=== PATIENT | female | born 1940 | race Caucasian/White ===

== ENCOUNTER 2017-03-03 10:02 | Emergency (ER) | payer MEDICAID ==
[2017-03-03 10:53] VITALS: BP 146/88
--- NOTE | 2017-03-03 18:24 | ED ---
Skin Complaint - HPI Summary HPI Summary: Patient presents with a severe sunburn over the chest x 3 weeks. She has been taking aloe vera lotion, mupirocin ointment and cetaphil without relief. Rx for hydroxyzine with minimal relief. She endorses 5/10 pain, itching. Denies chest pain or SOB. Denies current blistering, but states after 1 week s/p injury, experienced blistering which dissipated with mupirocin ointment. Now she states only itching remains. Denies other symptoms. - History of Current Complaint Chief Complaint: EDRashSkinAbscess Time Seen by Provider: 03/03/17 10:15 Stated Complaint: SUNBURN ON CHEST Hx Obtained From: Patient Onset/Duration: Started Weeks Ago Skin Exposure Onset/Duration: Weeks Ago Timing: Constant Onset Severity: Moderate Pain Intensity: 5 Pain Scale Used: 0-10 Numeric Skin Location: Chest Character: Redness, Painful Aggravating Symptom(s): Touch Alleviating Symptom(s): Nothing - Allergy/Home Medications Allergies/Adverse Reactions: Allergies Allergy/AdvReac Type Severity Reaction Status Date / Time Penicillinase Allergy Mild Rash Verified 04/25/16 16:56 PMH/Surg Hx/FS Hx/Imm Hx Previously Healthy: Yes Endocrine/Hematology History: Reports: Hx Thyroid Disease Cardiovascular History: Reports: Hx Hypertension - Immunization History Hx Pertussis Vaccination: No Immunizations Up to Date: Unable to Obtain/Confirm Infectious Disease History: No Infectious Disease History: Denies: History Other Infectious Disease, Traveled Outside the [place] in Last 30 Days - Family History Known Family History: Positive: Unknown - pt is not a good historian - Social History Occupation: Unemployed Lives: With Family Alcohol Use: None Hx Substance Use: No Substance Use Type: Reports: None Hx Tobacco Use: No Smoking Status (MU): Never Smoked Tobacco Do You Chew or Dip Tobacco: No Review of Systems Constitutional: Negative Eyes: Negative Respiratory: Negative Gastrointestinal: Negative Genitourinary: Negative Positive: no symptoms reported, see HPI Positive: Rash Neurological: Negative Psychological: Normal All Other Systems Reviewed And Are Negative: Yes Physical Exam Triage Information Reviewed: Yes Vital Signs On Initial Exam: Initial Vitals Temp Pulse Resp BP Pulse Ox 98.8 F 84 16 137/90 95 03/03/17 10:08 03/03/17 10:08 03/03/17 10:08 03/03/17 10:08 03/03/17 10:08 Vital Signs Reviewed: Yes Appearance: Positive: Well-Appearing, Well-Nourished Skin: Positive: Warm, Skin Color Reflects Adequate Perfusion, Other - dark erythematous warm area to the chest resembling s/p sunburn Neck: Positive: Supple, No Lymphadenopathy Respiratory/Lung Sounds: Positive: Clear to Auscultation, Breath Sounds Present Cardiovascular: Positive: Normal, RRR, Pulses are Symmetrical in both Upper and Lower Extremities Neurological: Positive: Sensory/Motor Intact, Alert, Oriented to Person Place, Time Psychiatric: Positive: Normal AVPU Assessment: Alert Diagnostics - Vital Signs Vital Signs Temp Pulse Resp BP Pulse Ox 03/03/17 10:51 99.3 F 79 18 146/88 99 03/03/17 10:08 98.8 F 84 16 137/90 95 - Laboratory Lab Statement: Any lab studies that have been ordered have been reviewed, and results considered in the medical decision making process. Course/Dx - Course Course Of Treatment: dark erythematous warm area to the chest resembling s/p sunburn without improvement with aloe vera. Rx for hydroxyzine and prednisone sent. Encouraged to continue aloe vera several times per day. Medications were reveiwed with patient. Encouarged to follow up with PCP or return to ED for worsening symptoms. Return precautions given. Patient understands and agrees with plan. Ok for discharge. - Differential Diagnoses - Skin Complaint Differential Diagnoses: Other - drug rash, sun burn, reaction, contact dermatitis - Diagnoses Provider Diagnoses: Sunburn Discharge - Discharge Plan Condition: Stable Disposition: HOME Prescriptions: diPHENhydraMINE PO* [Benadryl PO 25 MG TAB*] 25 mg PO BEDTIME PRN #10 tab PRN Reason: Pain hydrOXYzine HCL TAB* [Atarax 25 MG TAB*] 25 mg PO TID PRN #15 tab PRN Reason: Itching predniSONE TAB* [Deltasone TAB*] 50 mg PO DAILY #5 tab MDD 1 Patient Education Materials: Sunburn (ED), Cold Compress or Soak (ED) Referrals: Jessica Olson MD [Primary Care Provider] - Additional Instructions: Prednisone once daily for 5 days (in the morning) Hydroxyzine three times daily during the day Benadryl 25mg at bedtime Continue with aloe vera gel 5x per day Cold compresses may help the discomfort
== END 2017-03-03 11:02 | disposition home or self-care (01) ==
LOC: ED 10:02
DX: L55.9 Sunburn, unspecified (principal); R21 Rash and other nonspecific skin eruption
CPT/HCPCS: 99281

== ENCOUNTER → 2018-11-29 15:54 | Emergency (ER) | payer MEDICARE, MEDICAID ==
[~2018-11-29 15:54] MED LIST: Ondansetron ODT TAB* 4 MG SL ONE; oxyCODONE/Acetamin 5/325 MG* TAB PO ONE
[2018-11-29 16:55] LABS: Urine Appearance Clear; Urine Bacteria Absent (Absent); Urine Bilirubin Negative (Negative); Urine Blood 2+ (Negative); Urine Color Yellow; Urine Glucose 1+(50 mg/dL) (Negative); Urine Ketones Negative (Negative); Urine Nitrite Negative (Negative); Urine Protein Negative (Negative); Urine Red Blood Cell 1+(3-5/hpf) (Absent); Urine Specific Gravity 1.014 (1.010-1.030); Urine Urobilinogen Negative (Negative); Urine White Blood Cell Trace(0-5/hpf) (Absent)
--- NOTE | 2018-11-29 17:05 | ED ---
Back Pain - HPI Summary HPI Summary: This patient is a 77 year old F presenting to [facility] accompanied by her daughter with a chief complaint of worsening lower back pain radiating downwards since 2 days ago. At 05:00 this morning, she went to bend over and felt 10/10 pain in her back. The patient rates the pain 7/10 in severity. Patient reports pain with ambulation and decreased ROM due to pain. Patient denies incontinence, GI problems, weight loss, or urinary symptoms. The patient was gardening when the initial pain started. She was sitting and lifting something heavy when she felt a crack in her back. She tried to treat the pain with wet towels and Tylenol and she felt a little better after resting. The next day she had pain but could walk. Today, she could not walk or bend over much at all. Allergy to Penicillin , Valium, and Hydrochlorothiazide. She has not taken Tylenol today. No PMHx kidney stones, diabetes. - History of Current Complaint Chief Complaint: EDBackInjuryPain Stated Complaint: BACK PAIN PER PT DAUGHTER Time Seen by Provider: 11/29/18 16:37 Hx Obtained From: Patient Onset/Duration: Sudden Onset, Lasting Days Onset/Duration: Started Days Ago Timing: Constant Back Pain Location: Is Discrete @ - lower back, Radiates To - downwards Severity Initially: Severe - 10/10 Severity Currently: Moderate Pain Intensity: 7 Pain Scale Used: 0-10 Numeric Aggravating Symptom(s): Lifting, Bending, Walking Alleviating Symptom(s): Rest - Allergies/Home Medications Allergies/Adverse Reactions: Allergies Allergy/AdvReac Type Severity Reaction Status Date / Time hydrochlorothiazide Allergy Severe Blisters Verified 11/29/18 17:07 chlorthalidone Allergy Intermediate Rash Verified 11/29/18 17:07 diazepam [From Valium] Allergy Intermediate Dizziness Verified 11/29/18 17:07 nifedipine [From Adalat] Allergy Intermediate Rash Verified 11/29/18 17:07 Penicillins Allergy Intermediate Rash Verified 11/29/18 17:07 Home Medications: Home Medications Calcium Citrate/Vitamin D3 [Calcium Citrate-Vit D Caplet] 1 each PO DAILY [History Confirmed 11/29/18] Clobetasol Propionate/Emoll [Clobetasol Propionate Emo] 1 % TOPICAL DAILY [History Confirmed 11/29/18] Desonide 0.005% OINT(NF) 1 applic TOPICAL DAILY PRN 11/29/18 [History Confirmed 11/29/18] Losartan TAB* [Cozaar TAB*] 50 mg PO DAILY 11/29/18 [History Confirmed 11/29/18] Mometasone Furoate [Elocon] 0.1 % TOPICAL DAILY PRN 11/29/18 [History Confirmed 11/29/18] Freedom-3 Acid Ethyl Esters [Lovaza 1 gm] 1 cap PO DAILY 11/29/18 [History Confirmed 11/29/18] PMH/Surg Hx/FS Hx/Imm Hx Endocrine/Hematology History: Reports: Hx Thyroid Disease Denies: Hx Diabetes Cardiovascular History: Reports: Hx Hypertension History: Denies: Hx Kidney Stones Sensory History: Denies: Hx Deafness Infectious Disease History: No Infectious Disease History: Denies: History Other Infectious Disease, Traveled Outside the [place] in Last 30 Days - Family History Known Family History: Positive: Unknown - pt is not a good historian - Social History Lives: With Family Alcohol Use: None Hx Substance Use: No Substance Use Type: Reports: None Hx Tobacco Use: No Smoking Status (MU): Never Smoked Tobacco Review of Systems Negative: Other - weight loss Negative: Other - GI problems Genitourinary: Negative Positive: Myalgia - lower back pain, Decreased ROM - walking All Other Systems Reviewed And Are Negative: Yes Physical Exam - Summary Physical Exam Summary: GENERAL: Patient is a well-developed and nourished female who is lying comfortable in the stretcher. Patient is not in any acute respiratory distress. HEAD AND FACE: Normocephalic EYES: PERRLA, EOMI x 2. EARS: Hearing grossly intact. MOUTH: Oropharynx within normal limits. NECK: Supple, trachea is midline, no adenopathy, no JVD, no carotid bruit. CHEST: Symmetric, no tenderness at palpation LUNGS: Clear to auscultation bilaterally. No wheezing or crackles. CVS: Regular rate and rhythm, S1 and S2 present, no murmurs or gallops appreciated. ABDOMEN: Soft, non-tender. Bowel sounds are normal. No abdominal abnormal pulsations. EXTREMITIES: Full ROM in all major joints, no edema, no cyanosis or clubbing. 5/ 5 motor in the bilateral lower extremities. Sensation is intact. NEURO: Alert and oriented x 3. No acute neurological deficits. Speech is normal and follows commands. TTP Lumbar spine. SKIN: Dry and warm Triage Information Reviewed: Yes Vital Signs On Initial Exam: Initial Vitals Temp Pulse Resp BP Pulse Ox 98.9 F 70 16 169/93 97 11/29/18 15:57 11/29/18 15:57 11/29/18 15:57 11/29/18 15:57 11/29/18 15:57 Vital Signs Reviewed: Yes Diagnostics - Vital Signs Vital Signs Temp Pulse Resp BP Pulse Ox 11/29/18 15:57 98.9 F 70 16 169/93 97 - Laboratory Lab Results: Lab Results 11/29/18 Range/Units 16:41 Urine Color Yellow Urine Appearance Clear Urine pH 6.0 (5-9) Ur Specific [place] 1.014 (1.010-1.030) Urine Protein Negative (Negative) Urine Ketones Negative (Negative) Urine Blood 2+ A (Negative) Urine Nitrate Negative (Negative) Urine Bilirubin Negative (Negative) Urine Urobilinogen Negative (Negative) Ur Leukocyte Esterase Negative (Negative) Urine WBC (Auto) Trace(0-5/hpf) (Absent) Urine RBC (Auto) 1+(3-5/hpf) A (Absent) Urine Bacteria Absent (Absent) Urine Glucose 1+(50 mg/dl) A (Negative) Result Diagrams: 11/29/18 17:24 11/29/18 17:25 Lab Statement: Any lab studies that have been ordered have been reviewed, and results considered in the medical decision making process. - Radiology L-spine Radiology Interpretation Completed By: Radiologist Summary of Radiographic Findings: MILD DEGENERATIVE DISC DISEASE. ED physician has reviewed this report. T-spine Radiology Interpretation Completed By: Radiologist Summary of Radiographic Findings: MILD TO MODERATE DIFFUSE DEGENERATIVE DISC DISEASE. ED physician has reviewed this report. Back Pain Course/Dx - Course Course Of Treatment: This patient is a 77 year old F presenting to [facility] accompanied by her daughter with a chief complaint of worsening lower back pain radiating downwards since 2 days ago. At 05:00 this morning, she went to bend over and felt 10/10 pain in her back. The patient rates the pain 7/10 in severity. Patient reports pain with ambulation and decreased ROM due to pain. Patient denies incontinence, GI problems, weight loss, or urinary symptoms. T- spine x ray reveals, per radiologist, MILD TO MODERATE DIFFUSE DEGENERATIVE DISC DISEASE. L-spine x ray reveals, per radiologist, MILD DEGENERATIVE DISC DISEASE. ED physician has reviewed this radiology report. Bloodwork/UA obtained. The patients bloodwork shows glucose, and since she has not history of diabetes, I ordered basic bloodwork. In the ED course the patient was given Ondansetron and Oxycodone. Patient will be discharged with prescription for Tramadol and follow up from Dr. Olson. - Diagnoses Provider Diagnoses: Sciatica Discharge - Sign-Out/Discharge Documenting (check all that apply): Patient Departure - discharge Patient Received Moderate/Deep Sedation with Procedure: No - Discharge Plan Condition: Stable Disposition: HOME Prescriptions: traMADol TAB* [Ultram*] 50 mg PO Q8H PRN #15 tab MDD 3 PRN Reason: Pain Patient Education Materials: Sciatica (ED) Referrals: Jessica Olson MD [Primary Care Provider] - 3 Days Additional Instructions: Follow up with Dr. Olson in 1-3 days. RETURN TO THE EMERGENCY DEPARTMENT FOR CHANGING OR WORSENING SYMPTOMS. - Billing Disposition and Condition Condition: STABLE Disposition: Home - Attestation Statements Document Initiated by Leiibe: Yes Documenting Scribe: Reji Mitchell Provider For Whom Leiibe is Documenting (Include Credential): Devon Street Scribe Attestation: IReji, pauled for Devon Street on 11/29/18 at 1845. Scribe Documentation Reviewed: Yes Provider Attestation: The documentation as recorded by the Reji hernandez accurately reflects the service I personally performed and the decisions made by , [address] Status of Scribe Document: Viewed
[2018-11-29 17:34] LABS: ABS Basophils 0.1 10^3/ul (0-0.2); ABS Eosinophils 0.2 10^3/ul (0-0.6); ABS Lymphocytes 1.8 10^3/ul (1.0-4.8); ABS Monocytes 0.4 10^3/ul (0-0.8); ABS Nucleated RBC 0 10^3/ul; Eosinophil % 3.9 %; Hematocrit 38 % (33-41); Hemoglobin 12.5 g/dL (12.0-16.0); Lymphocyte % 33.5 %; Mean Corpuscular HGB Conc 33 g/dL (31-36); Mean Corpuscular Hemoglobin 30 pg (27-31); Mean Corpuscular Volume 91 fL (80-97); Mean Platelet Volume 8.4 fL (7.4-10.4); Nucleated Red Blood Cells % 0; Platelet Count 273 10^3/uL (150-450); Red Blood Count 4.13 10^6 /uL (3.70-4.87); Red Cell Distribution Width 14 % (10.5-15); White Blood Count 5.5 10^3/uL (3.5-10.8)
[2018-11-29 17:49] LABS: Albumin 3.9 g/dL (3.2-5.2); Albumin/Globulin Ratio 1.3 (1-3); BUN/Creatinine Ratio 27.7 (8-20); Calcium 10.2 mg/dL (8.6-10.3); EGFR African American 106.4 (>60); EGFR Non-African American 87.9 (>60); Potassium 3.7 mmol/L (3.5-5.0); Total Bilirubin 0.5 mg/dL (0.2-1.0); Total Protein 6.9 g/dL (6.4-8.9)
[2018-11-29 19:25] VITALS: BP 182/66
== END | disposition home or self-care (01) ==
LOC: ED 15:54
DX: M54.30 Sciatica, unspecified side (principal); M51.34 Other intervertebral disc degeneration, thoracic region; M51.37 Other intervertebral disc degeneration, lumbosacral region; I10 Essential (primary) hypertension; E03.9 Hypothyroidism, unspecified; Z88.8 Allergy status to other drugs, medicaments and biological substances; Z88.0 Allergy status to penicillin
CPT/HCPCS: 36415; 72070; 72110; 80053; 81003; 81015; 83036; 85025; 87086; 99283; A9270-GY

== ENCOUNTER 2018-12-01 21:37 | Emergency (ER) | payer MEDICARE, MEDICAID ==
[2018-12-01] MEDS ORDERED: cloNIDine TAB* 0.1 MG PO ONE (23:01)
--- NOTE | 2018-12-01 23:01 | ED ---
Hypertension - HPI Summary HPI Summary: This patient is a 48 year old F presenting to [facility] with a chief complaint of high blood pressure, worsening since 21:20 today. Pt reports BP of 211/100. She saw her PCP on 11/17/18 for high blood pressure and was given 50 mg Losartan. She saw her PCP on 11/27/18 again and her dose was increased to 100 mg Losartan. Patient reports ROBLEDO in the morning and coughing. Patient denies dizziness currently. She has a PMHx of HTN. - History of Current Complaint Chief Complaint: EDHypertension Stated Complaint: HIGH BLOOD PRESSURE PER PT Time Seen by Provider: 12/01/18 22:47 Hx Obtained From: Patient Onset/Duration: Started Weeks Ago, Still Present Timing: Constant Associated Signs & Symptoms: Headaches - In the morning, Dizziness - Denies currently, Other: - Cough - Allergies/Home Medications Allergies/Adverse Reactions: Allergies Allergy/AdvReac Type Severity Reaction Status Date / Time hydrochlorothiazide Allergy Severe Blisters Verified 12/01/18 21:44 chlorthalidone Allergy Intermediate Rash Verified 12/01/18 21:44 diazepam [From Valium] Allergy Intermediate Dizziness Verified 12/01/18 21:44 nifedipine [From Adalat] Allergy Intermediate Rash Verified 12/01/18 21:44 Penicillins Allergy Intermediate Rash Verified 12/01/18 21:44 PMH/Surg Hx/FS Hx/Imm Hx Endocrine/Hematology History: Reports: Hx Thyroid Disease Denies: Hx Diabetes Cardiovascular History: Reports: Hx Hypertension History: Denies: Hx Kidney Stones Sensory History: Denies: Hx Deafness - Surgical History Surgery Procedure, Year, and Place: None Infectious Disease History: No Infectious Disease History: Denies: History Other Infectious Disease, Traveled Outside the [place] in Last 30 Days - Family History Known Family History: Positive: Unknown - pt is not a good historian - Social History Alcohol Use: None Hx Substance Use: No Substance Use Type: Reports: None Hx Tobacco Use: No Smoking Status (MU): Never Smoked Tobacco Review of Systems Positive: Other - High blood pressure Positive: Cough Neurological: Other - Denies dizziness currently Positive: Headache - in the morning All Other Systems Reviewed And Are Negative: Yes Physical Exam - Summary Physical Exam Summary: VITAL SIGNS: Reviewed. GENERAL: Patient is a well-developed and nourished FEMALE who is lying comfortable in the stretcher. Patient is not in any acute respiratory distress. HEAD AND FACE: No signs of trauma. No ecchymosis, hematomas or skull depressions. No sinus tenderness. EYES: PERRLA, EOMI x 2, No injected conjunctiva, no nystagmus. EARS: Hearing grossly intact. Ear canals and tympanic membranes are within normal limits. MOUTH: Oropharynx within normal limits. NECK: Supple, trachea is midline, no adenopathy, no JVD, no carotid bruit, no c- spine tenderness, neck with full ROM. CHEST: Symmetric, no tenderness at palpation LUNGS: Clear to auscultation bilaterally. No wheezing or crackles. CVS: Regular rate and rhythm, S1 and S2 present, no murmurs or gallops appreciated. ABDOMEN: Soft, non-tender. No signs of distention. No rebound, no guarding, and no masses palpated. Bowel sounds are normal. EXTREMITIES: FROM in all major joints, no edema, no cyanosis or clubbing. NEURO: Alert and oriented x 3. No acute neurological deficits. Speech is normal and follows commands. SKIN: Dry and warm Triage Information Reviewed: Yes Vital Signs On Initial Exam: Initial Vitals Temp Pulse Resp BP Pulse Ox 98.2 F 72 16 194/101 98 12/01/18 21:38 12/01/18 21:38 12/01/18 21:38 12/01/18 21:38 12/01/18 21:38 Vital Signs Reviewed: Yes Diagnostics - Vital Signs Vital Signs Temp Pulse Resp BP Pulse Ox 12/01/18 21:38 98.2 F 72 16 194/101 98 - Laboratory Lab Statement: Any lab studies that have been ordered have been reviewed, and results considered in the medical decision making process. Hypertension Course/Dx - Course Course Of Treatment: This patient is a 48 year old F presenting to [facility] with a chief complaint of high blood pressure, worsening since 21:20 today. I did prescribe Toprol XL 25 mg to be taken daily. I will d/c her. She should follow up about her blood pressure with her doctor, dx is HTN. - Diagnoses Provider Diagnoses: Hypertension Discharge - Sign-Out/Discharge Documenting (check all that apply): Patient Departure - D/C home Patient Received Moderate/Deep Sedation with Procedure: No - Discharge Plan Condition: Stable Disposition: HOME Prescriptions: Metoprolol Succinate XL TAB* [Toprol XL TAB*] 25 mg PO DAILY #15 tab.xl Patient Education Materials: Hypertension in the Older Adult (ED) Referrals: Jessica Olson MD [Primary Care Provider] - 3 Days Additional Instructions: Follow up with your PCP in 3 days about your high blood pressure. PLEASE RETURN TO THE ED IMMEDIATELY FOR WORSENING OR CONCERNING SYMPTOMS. - Attestation Statements Document Initiated by Scribe: Yes Documenting Scribe: Gonsalo So Provider For Whom Scribe is Documenting (Include Credential): Tova Hays MD Scribe Attestation: IGonsalo, scribed for Tova Hays MD on 12/02/18 at 0035. Status of Scribe Document: Ready
[2018-12-02 00:35] VITALS: BP 175/73
== END 2018-12-02 00:34 | disposition home or self-care (01) ==
LOC: ED 21:37
DX: I10 Essential (primary) hypertension (principal); E07.9 Disorder of thyroid, unspecified; Z88.0 Allergy status to penicillin
CPT/HCPCS: 99282; A9270-GY

== ENCOUNTER 2019-03-22 15:29 | Emergency (ER) | payer MEDICARE, MEDICAID ==
--- NOTE | 2019-03-22 15:50 | ED ---
Adult Trauma - HPI Summary HPI Summary: Patient complains of head injury and headache status post falling off exercise ball backwards 10 AM this morning. Patient fell backwards and hit her head on the edge of a chair. Denies LOC, vision change, N/V, trauma to mouth, AMS,, any other pain injury or symptoms. No anti-coag. - History of Current Complaint Chief Complaint: EDHeadInjury Stated Complaint: FALL THIS MORNING PER DAUGHTER Time Seen by Provider: 03/22/19 15:41 Hx Obtained From: Patient Mechanism of Injury: Fall Ambulatory at the Scene: Yes Loss of Consciousness: no loss of consciousness Onset of Pain: Immediate, Hours Onset Severity: Moderate Current Severity: Moderate Pain Intensity: 5 Pain Scale Used: 0-10 Numeric Character: Dull, Aching Aggravating Factor(s): Nothing Alleviating Factor(s): Nothing Associated Signs & Symptoms: Positive: Negative - Allergy/Home Medications Allergies/Adverse Reactions: Allergies Allergy/AdvReac Type Severity Reaction Status Date / Time hydrochlorothiazide Allergy Severe Blisters Verified 03/22/19 15:35 chlorthalidone Allergy Intermediate Rash Verified 03/22/19 15:35 diazepam [From Valium] Allergy Intermediate Dizziness Verified 03/22/19 15:35 nifedipine [From Adalat] Allergy Intermediate Rash Verified 03/22/19 15:35 Penicillins Allergy Intermediate Rash Verified 03/22/19 15:35 PMH/Surg Hx/FS Hx/Imm Hx Endocrine/Hematology History: Reports: Hx Thyroid Disease Denies: Hx Diabetes Cardiovascular History: Reports: Hx Hypertension History: Denies: Hx Kidney Stones Sensory History: Denies: Hx Deafness Opthamlomology History: Denies: Hx Eye Prosthesis Neurological History: Denies: Hx Developmental Delay - Surgical History Surgery Procedure, Year, and Place: None Infectious Disease History: No Infectious Disease History: Denies: History Other Infectious Disease, Traveled Outside the [place] in Last 30 Days - Family History Known Family History: Positive: Unknown - pt is not a good historian - Social History Alcohol Use: None Hx Substance Use: No Substance Use Type: Reports: None Hx Tobacco Use: No Smoking Status (MU): Never Smoked Tobacco Review of Systems Constitutional: Negative Eyes: Negative ENT: Negative Cardiovascular: Negative Respiratory: Negative Gastrointestinal: Negative Genitourinary: Negative Musculoskeletal: Negative Skin: Negative Positive: Headache Psychological: Normal All Other Systems Reviewed And Are Negative: Yes Physical Exam - Summary Physical Exam Summary: Tenderness to palpation on occipital area. Full range of motion of jaw and neck. No evidence of trauma to mouth, face. No tenderness to palpation of back , chest wall, abdomen. Patient moving all 4 extremities freely. Neuro exam normal. Triage Information Reviewed: Yes Vital Signs On Initial Exam: Initial Vitals Temp Pulse Resp BP Pulse Ox 99.1 F 64 16 189/81 97 03/22/19 15:31 03/22/19 15:31 03/22/19 15:31 03/22/19 15:31 03/22/19 15:31 Vital Signs Reviewed: Yes Appearance: Positive: Well-Appearing Skin: Positive: Warm Head/Face: Positive: Normal Head/Face Inspection Eyes: Positive: Normal ENT: Positive: Normal ENT inspection Dental: Negative: Dental Fracture @, Bleeding Neck: Positive: Supple Respiratory/Lung Sounds: Positive: Clear to Auscultation Cardiovascular: Positive: Normal Abdomen Description: Positive: Nontender Musculoskeletal: Positive: Normal Neurological: Positive: Normal Psychiatric: Positive: Normal AVPU Assessment: Alert - [place] Coma Scale Best Eye Response: 4 - Spontaneous Best Motor Response: 6 - Obeys Commands Best Verbal Response: 5 - Oriented Coma Scale Total: 15 Diagnostics - Vital Signs Vital Signs Temp Pulse Resp BP Pulse Ox 03/22/19 15:31 99.1 F 64 16 189/81 97 - Laboratory Lab Statement: Any lab studies that have been ordered have been reviewed, and results considered in the medical decision making process. Adult Trauma Course/Dx - Course Course Of Treatment: Patient complains of head injury and headache status post falling off exercise ball backwards 10 AM this morning. Patient fell backwards and hit her head on the edge of a chair. Denies LOC, vision change, N/V, trauma to mouth, AMS,, any other pain injury or symptoms. No anti-coag. Vital signs within normal limits. CT of brain and C-spine negative. - Diagnoses Provider Diagnoses: Fall, Head injury Discharge - Sign-Out/Discharge Documenting (check all that apply): Patient Departure Patient Received Moderate/Deep Sedation with Procedure: No - Discharge Plan Condition: Stable Disposition: HOME Patient Education Materials: Head Injury (ED) Referrals: Jessica Olson MD [Primary Care Provider] - Additional Instructions: Alternate ibuprofen 400 mg with Tylenol 650 mg every 3 hours for pain. Return to the ED for any new or worsening symptoms. Incidental finding on CAT scan of neck: Osteopenia. 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
[2019-03-22 17:07] VITALS: BP 154/88
== END 2019-03-22 17:06 | disposition home or self-care (01) ==
LOC: ED 15:29
DX: S09.90XA Unspecified injury of head, initial encounter (principal); E07.9 Disorder of thyroid, unspecified; W19.XXXA Unspecified fall, initial encounter; Y93.B1 Activity, exercise machines primarily for muscle strengthening; Y92.9 Unspecified place or not applicable; Z88.0 Allergy status to penicillin; Z88.8 Allergy status to other drugs, medicaments and biological substances; I10 Essential (primary) hypertension; M85.88 Other specified disorders of bone density and structure, other site; M48.02 Spinal stenosis, cervical region
CPT/HCPCS: 70450; 72125; 99281